=== PATIENT | female | born 1955 ===

== ENCOUNTER 2019-03-04 00:20 | Inpatient (IN) ==
[2019-03-04] MEDS ORDERED: MAGNESIUM HYDROXIDE SUSP 30 ML UDC PO PRN (00:27)
[2019-03-04] MEDS ORDERED: ALUMINUM/MAGNESIUM SUSP 30 ML UDC PO PRN (00:27)
[2019-03-04] MEDS ORDERED: SODIUM CHLORIDE 0.65% NA SOLN 45 ML (OCEAN) PRN (00:27)
[2019-03-04] MEDS ORDERED: BISMUTH SUBSALICYLATE PER ML OMNICELL CHARGE PO PRN (00:27)
[2019-03-04] MEDS ORDERED: INFLUENZA VIRUS QUAD VACCINE 0.5 ML SYR IM ONE (09:00)
[2019-03-04] MEDS ORDERED: INFLUENZA ADMINISTRATION CHARGE ONE (09:00)
[2019-03-04] MEDS: BuPROPion SR 100 MG TABCR PO SCH (11:38)
[2019-03-04] MEDS: LORazepam 1 MG TAB PO PRN (11:39)
[2019-03-04] MEDS: PANTOprazole 40 MG TAB PO SCH (11:39)
--- NOTE | 2019-03-04 11:44 | History & Physical ---
Date of Service March 04, 2019 Impression / Recommendations Impression 63 yo female with a history of schizoaffective disorder, bipolar type with prior suicide attempt 5 years ago presents with long history of paranoid delusions re: electronics, symptoms worsening to include SI in the context of presumed withdrawal from benzodiazepines. (1) Schizoaffective disorder: 03/04 The patient was admitted to the [facility] ([facility]) on q15 min checks (behavioral with suicide precautions) for safety. The patient will participate in group, recreational, and milieu therapies and will be offered additional individual and family sessions as clinically appropriate. she is resistant to titrating Abilify today and ideally need records re: past med trials. She did agree to resume Ativan as it does seem worsened significan tly during withdrawal and we are working to obtain collateral. She is paranoid and won't sign ROIs at this time. Given past positive response to Wellbutrin, it will not be held at this time but in general can contribute to paranoia due to dopaminergic property. no clear evidence of serotonin syndrome so continue Buspar QTc is borderline, repeat EKG fasting metabolic panel in am. Inventory Assets Strengths: supportive family, has been med compliant, maintains some reality focus Needs: medication adjustment, additional outpatient supports Risk Factors Assessment Male: No : Yes Do You Have Access To A Gun?: No Mental Health Diagnoses: Yes Substance Use Disorders: No Previous Attempt: Yes Family History of Suicide: No Previous Psychiatric Hospitalization: Yes Hopelessness: Yes Protective Factors Assessment Supportive Family: Yes Psychiatric History Identifying Data MELANIE MARTINEZ is a 63-year-old F who currently lives outside alone outside [place], has a history of schizoaffective disorder s/p suicide attempt 5 years ago, and was admitted on 03/04/19 02:12 on a 201 voluntary commitment for disorganized paranoia. Chief Complaint "I just lose my mind over computer stuff". History of Present Illness Patient accepted on transfer from [facility] ED where presented after calling crisis at insistence of daughter. She has had persistent paranoia about technology that predates her prior suicide attempt, primarily about things be moved or not being able to touch certain things as they may be booby trapped. 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 In the past few weeks she has worsened and although she had difficulty relating past history, states psych team at [facility] started her on low dose Abilify. She admits to breaking a laptop and cancelling her cable and internet. She states that she was taking Ativan 1 mg TID as prescribed but ran out a week ago. PDMP confirms 90 pills given by [facility] on 01/31/19. Over the course of the past week she has been less able to function and experiencing periods of confusion. She reports "losing it" over her car and doesn't remember going to the [employer] to [place] a new one. She does not remember taking out the loan and is remorseful as "I don't need it, I don't even want to drive". It is not clear how much she is sleeping but predominant mood has been depressed. She expressed SI and was guarded about her plan. She also voiced delusions about her 's phone ringing ( 2 years ago) and hearing chattering. She "couldn't stand it" when the [employer] light came on her in car and wished she could be shot. Past Psychiatric History Previous Psych History: she is not able to related and won't sign ROIs as paranoid about dates. has had paranoia outside of mood episode. Current Psychiatric Diagnosis: schizoaffective d/o, bipolar type Outpatient Services: [facility] only Previous Psych Admissions: [facility] in 2013, [facility], [place] 2019 Do You Have Access To A Gun?: No History of Previous Suicide Attempt: Yes Describe Attempts in the Past: overdose ~ 5 years ago Past Medication Trials: unable to provide full list, with regards to her allergies she states felt like she couldn't breathe with Geodon and hallucinated on Haldol, otherwise denies dystonia. has failed multiple antidepressants by her reports and will obtain ROIs when able. States Wellbutrin was only "god send" and on/off it over the years, it also helped her quit smoking 9 years ago Past Head Trauma/Neuro History History of Concussion/Seizure: No hx of hypercholesterolemia, states diet controlled EKG from [facility] show ST changes (confirmed on previous) and QTc in 485 Allergies Allergy/AdvReac Type Severity Reaction Status Date / Time ziprasidone [From Geodon] Allergy Unverified 03/04/19 00:29 haloperidol [From Haldol] AdvReac Unverified 03/04/19 00:29 rosuvastatin [From Crestor] AdvReac Unverified 03/04/19 00:29 Home Medications Home Medications Medication Instructions Recorded Confirmed Type aripiprazole [Abilify] 2 mg PO DAILY 03/04/19 03/04/19 History bupropion HCl [Wellbutrin SR] 200 mg PO DAILY 03/04/19 03/04/19 History buspirone 10 mg PO BID 03/04/19 03/04/19 History lorazepam [Ativan] 1 mg PO TID PRN 03/04/19 03/04/19 History omeprazole 20 mg PO DAILY 03/04/19 03/04/19 History Family History Family History of: Doesn't Know Alcohol History Hx of Alcohol Use Over the Past 12 Months: No AUDIT Total Score: 0 Smoking Use Have You Smoked or Used Tobacco Products in the Last 30 Days: No Smoking Status: Former smoker Substance History Hx of Prescription Med Misuse Over the Past 12 Months: No Hx of Over the Counter Med Misuse Over the Past 12 Months: No Hx of Inhalent Misuse Over the Past 12 Months: No Hx of Organic Substance Use Over the Past 12 Months: No Hx of Illegal Substances/Street Drug Use Over Past 12 Months: No Problems as a Result of Past Substance Use: None Identified Personal History Living Arrangements: Home Employment Status: Disabled Marital Status: Number Of Children: 2 daughters and 1 son Beliefs That Will Affect Care: None and Roman Catholic Current Legal Problems: No Hx Legal Problems: No Psychological Trauma History Comment: patient unable to answer Patient History Social History Preferred Language: Frisian Communication Ability: Effective Bilingual Customer Service Required: No Beliefs That Will Affect Care: None and Roman Catholic Feels Safe at Home: Yes Smoking Status: Former smoker Review of Systems Review of Systems: All systems reviewed & are unremarkable except as noted in HPI & below Physical Exam Mental Examination: A physical exam was performed in the ED at [facility] for the purposes of medical clearance. I accept that physical as correct and adequate for the purposes of the inpatient physical exam. Psychiatric: Orientation: alert, oriented to person and oriented to place Apperance: + disheveled Eye Contact: + fair eye contact Motor Behavior: no abnormal motor movements Speech: normal rate/rhythm/volume of speech Affect: + depressed affect and + anxious affect Mood: + depressed mood and + anxious mood Thought Process: + circumstantial thought process Thought Content: + paranoid and + delusions Suicidal Thoughts: denies suicidal plan and denies suicidal intent; + reports suicidal thoughts suicidal thoughts as severely overwhelmed Homicidal Thoughts: denies homicidal thoughts Hallucinations: + auditory hallucinations; no visual hallucinations Cognition: language grossly intact; + recent memory not intact, + remote memory not intact and + attention not intact Estimated Intelligence: consistent with education level Insight: + impaired insight Judgement: + impaired judgement Vital Signs (Past 24 Hours): Last Vital Signs Temp 36.8 C 03/04/19 06:49 Pulse 102 H 03/04/19 06:49 Resp 19 03/04/19 06:49 BP 147/80 H 03/04/19 06:49 Results & Data Current Inpatient Medications Current Inpatient Medications: Current Inpatient Medications Acetaminophen (Tylenol) 650 mg PO Q4H PRN PRN Reason: Headache or Minor Fever Stop: 04/03/19 00:26 Al Hydrox/Mg Hydrox/Simethicone (Maalox) 30 ml PO Q4H PRN PRN Reason: GI Upset Stop: 04/03/19 00:26 Aripiprazole (Abilify) 2 mg PO DAILY CASSIDY Stop: 04/04/19 08:59 Bismuth Subsalicylate (Kaopectate) 15 ml PO PRN PRN PRN Reason: Loose Stool Stop: 04/03/19 00:26 Bupropion HCl (Wellbutrin-Sr) 200 mg PO DAILY CASSIDY Stop: 04/03/19 09:59 Buspirone HCl (Buspar) 10 mg PO BID CASSIDY Stop: 04/03/19 20:59 Hydroxyzine HCl (Vistaril) 50 mg PO HSZ PRN PRN Reason: Insomnia Stop: 04/03/19 00:26 Last Admin: 03/04/19 02:56 Dose: 50 mg Documented by: Hydroxyzine HCl (Vistaril) 25 mg PO Q4H PRN PRN Reason: Anxiety Stop: 04/03/19 00:26 Lorazepam (Ativan) 1 mg PO TID PRN PRN Reason: Anxiety Stop: 04/03/19 09:46 Magnesium Hydroxide (Milk Of Magnesia) 30 ml PO DAILY PRN PRN Reason: Constipation Stop: 04/03/19 00:26 Pantoprazole Sodium (Protonix) 40 mg PO DAILY CASSIDY Stop: 04/03/19 10:29 Sodium Chloride ([place] Nasal) 1 - 2 sprays NA PRN PRN PRN Reason: Nasal Dryness/Congestion Stop: 04/03/19 00:26 CPT Code CPT Code Initial Hospital Care: 30594
[2019-03-04] MEDS ORDERED: BENZTROPINE MESYLATE 0.5 MG TAB PO PRN (12:22)
[2019-03-04] MEDS: ACETAMINOPHEN 325 MG TAB PO PRN (17:50)
[2019-03-05] MEDS: LORazepam 1 MG TAB PO PRN ×2 (08:16→17:58)
[2019-03-05] MEDS: PANTOprazole 40 MG TAB PO SCH (08:16)
[2019-03-05] MEDS: BuPROPion SR 100 MG TABCR PO SCH (08:16)
[2019-03-05 08:54] LABS: Glucose Fasting 91 mg/dl (70-99)
[2019-03-05 09:00] LABS: Chol HDL Ratio 3; Cholesterol 167 mg/dl (0-200); HDL Cholesterol 54 mg/dl; LDL Cholesterol Calculated 91 mg/dl; Triglycerides 112 mg/dl (0-150); VLDL Cholesterol 22 mg/dl
[2019-03-05] MEDS ORDERED: ARIPIprazole 1 MG/ML ORAL SOLN 150 ML BTL PO SCH (09:00)
--- NOTE | 2019-03-05 11:06 | Psychiatric Progress Note ---
Date of Service March 05, 2019 Impression / Recommendations Impression 63 yo female with a history of schizoaffective disorder, bipolar type with prior suicide attempt 5 years ago presents with long history of paranoid delusions re: electronics, symptoms worsening to include SI in the context of presumed withdrawal from benzodiazepines. (1) Schizoaffective disorder: 03/04 The patient was admitted to the [facility] ([facility]) on q15 min checks (behavioral with suicide precautions) for safety. The patient will participate in group, recreational, and milieu therapies and will be offered additional individual and family sessions as clinically appropriate. she is resistant to titrating Abilify today and ideally need records re: past med trials. She did agree to resume Ativan as it does seem worsened significan tly during withdrawal and we are working to obtain collateral. She is paranoid and won't sign ROIs at this time. Given past positive response to Wellbutrin, it will not be held at this time but in general can contribute to paranoia due to dopaminergic property. no clear evidence of serotonin syndrome so continue Buspar QTc is borderline, repeat EKG fasting metabolic panel in am. 03/05--refused repeat EKG this am. d/c Abilify as ?contribution to mild serotonin syndrome, refusing titration yet need to determine appropriate options given past side effects. Much more organized today with restart Ativan. Inventory Assets Strengths: supportive family, has been med compliant, maintains some reality focus Needs: medication adjustment, additional outpatient supports Risk Factors Assessment Male: No : Yes Do You Have Access To A Gun?: No Mental Health Diagnoses: Yes Substance Use Disorders: No Previous Attempt: Yes Family History of Suicide: No Previous Psychiatric Hospitalization: Yes Hopelessness: Yes Protective Factors Assessment Supportive Family: Yes Interval History Chief Complaint "I just can't trust why all this stuff happens the way it does, it can't be a coincidence". Review of Systems Sleep Information Total Hours of Sleep: 8.75 Meal Information Percent Meal Consumed - Breakfast: 0 Percent Meal Consumed - Lunch: 100 Percent Meal Consumed - Dinner: 100 Subjective Subjective Patient was seen & assessed and interval progress reviewed with nursing and social work. Paranoid about her medication as Abilify was liquid rather than pills and is now stating that most of her symptoms have been worse over the 3 week trial and she no longer wants to continue. She has shown positive response to Ativan restart and signed ROIs so can continue to obtain collaborative history. She breaks down any time the car is mentioned. She secluded to room much of day but starting to attend some groups. Staff now report that daughter believes she found a suicide note. Physical Exam Psychiatric Orientation: alert, oriented to person and oriented to place Apperance: + disheveled Eye Contact: + fair eye contact Motor Behavior: no abnormal motor movements Speech: normal rate/rhythm/volume of speech Affect: + depressed affect and + anxious affect Mood: + depressed mood and + anxious mood Thought Process: + circumstantial thought process Thought Content: + paranoid and + delusions Suicidal Thoughts: denies suicidal plan and denies suicidal intent Homicidal Thoughts: denies homicidal thoughts Hallucinations: + auditory hallucinations; no visual hallucinations Cognition: language grossly intact; + recent memory not intact, + remote memory not intact and + attention not intact Estimated Intelligence: consistent with education level Insight: + impaired insight Judgement: + impaired judgement Vital Signs (Past 24 Hours) Last Vital Signs Temp 36.6 C 03/05/19 06:00 Pulse 71 03/05/19 06:45 Resp 16 03/05/19 06:00 BP 133/87 03/05/19 06:45 Results & Data Laboratory Results Laboratory Results - last 24 hr 03/05/19 08:06 Fasting Glucose 91 Triglycerides 112 Cholesterol 167 LDL Cholesterol, Calc 91 VLDL Cholesterol, Calc 22 HDL Cholesterol 54 Cholesterol/HDL Ratio 3 Current Inpatient Medications Current Inpatient Medications: Current Inpatient Medications Acetaminophen (Tylenol) 650 mg PO Q4H PRN PRN Reason: Headache or Minor Fever Stop: 04/03/19 00:26 Last Admin: 03/04/19 17:50 Dose: 650 mg Documented by: Al Hydrox/Mg Hydrox/Simethicone (Maalox) 30 ml PO Q4H PRN PRN Reason: GI Upset Stop: 04/03/19 00:26 Aripiprazole (Abilify) 2 mg PO DAILY CASSIDY Stop: 04/04/19 08:59 Last Admin: 03/05/19 08:29 Dose: Not Given Documented by: Benztropine Mesylate (Cogentin) 0.5 mg PO Q6 PRN PRN Reason: Muscle Spasm Stop: 04/03/19 12:21 Bismuth Subsalicylate (Kaopectate) 15 ml PO PRN PRN PRN Reason: Loose Stool Stop: 04/03/19 00:26 Bupropion HCl (Wellbutrin-Sr) 200 mg PO DAILY CASSIDY Stop: 04/03/19 09:59 Last Admin: 03/05/19 08:16 Dose: 200 mg Documented by: Buspirone HCl (Buspar) 10 mg PO BID CASSIDY Stop: 04/03/19 20:59 Last Admin: 03/05/19 08:16 Dose: 10 mg Documented by: Hydroxyzine HCl (Vistaril) 50 mg PO HSZ PRN PRN Reason: Insomnia Stop: 04/03/19 00:26 Last Admin: 03/04/19 21:18 Dose: 50 mg Documented by: Hydroxyzine HCl (Vistaril) 25 mg PO Q4H PRN PRN Reason: Anxiety Stop: 04/03/19 00:26 Lorazepam (Ativan) 1 mg PO TID PRN PRN Reason: Anxiety Stop: 04/03/19 09:46 Last Admin: 03/05/19 08:16 Dose: 1 mg Documented by: Magnesium Hydroxide (Milk Of Magnesia) 30 ml PO DAILY PRN PRN Reason: Constipation Stop: 04/03/19 00:26 Pantoprazole Sodium (Protonix) 40 mg PO DAILY CASSIDY Stop: 04/03/19 10:29 Last Admin: 03/05/19 08:16 Dose: 40 mg Documented by: Sodium Chloride ([place] Nasal) 1 - 2 sprays NA PRN PRN PRN Reason: Nasal Dryness/Congestion Stop: 04/03/19 00:26 Mental Health & Subst Abuse Tx Psychiatrist Name of Psychiatrist: [facility] - Dr. Rodríguez Psychiatrist's Date of Appointment with Psychiatrist: 03/07/19 Time of Appointment with Psychiatrist: 2:00pm Psychiatric Appointment Comment: [address] [place] [id number] (Appt. w/[place] Powell) Therapist Name of Therapist: does not remember Post Discharge Appointments Primary Care Physician Name Of Family Doctor: [facility] - Dr. Multani Primary Care Provider Appointment Comment: [address] [place] [address] Contact Information Discharge Discharge Address: [address], [place] [address] CPT Code CPT Code 27736
[2019-03-06] MEDS: PANTOprazole 40 MG TAB PO SCH (09:53)
[2019-03-06] MEDS: BuPROPion SR 100 MG TABCR PO SCH (09:53)
--- NOTE | 2019-03-06 10:44 | Psychiatric Progress Note ---
Date of Service March 06, 2019 Impression / Recommendations Impression 63 yo female with a history of schizoaffective disorder, bipolar type with prior suicide attempt 5 years ago presents with long history of paranoid delusions re: electronics, symptoms worsening to include SI in the context of presumed withdrawal from benzodiazepines. (1) Schizoaffective disorder: 03/04 The patient was admitted to the [facility] ([facility]) on q15 min checks (behavioral with suicide precautions) for safety. The patient will participate in group, recreational, and milieu therapies and will be offered additional individual and family sessions as clinically appropriate. she is resistant to titrating Abilify today and ideally need records re: past med trials. She did agree to resume Ativan as it does seem worsened significan tly during withdrawal and we are working to obtain collateral. She is paranoid and won't sign ROIs at this time. Given past positive response to Wellbutrin, it will not be held at this time but in general can contribute to paranoia due to dopaminergic property. no clear evidence of serotonin syndrome so continue Buspar QTc is borderline, repeat EKG fasting metabolic panel in am. 03/05--refused repeat EKG this am. d/c Abilify as ?contribution to mild serotonin syndrome, refusing titration yet need to determine appropriate options given past side effects. Much more organized today with restart Ativan. 03/06 - Records received from [facility], no past med trials included. Called and spoke with staff and requested med history, specifically antipsychotics. - Encourage patient to be out of bed and going to groups during the day. Encourage attention to ADLs/hygiene. - Family meeting wiht daughter scheduled for . Inventory Assets Strengths: supportive family, has been med compliant, maintains some reality focus Needs: medication adjustment, additional outpatient supports Risk Factors Assessment Male: No : Yes Do You Have Access To A Gun?: No Mental Health Diagnoses: Yes Substance Use Disorders: No Previous Attempt: Yes Family History of Suicide: No Previous Psychiatric Hospitalization: Yes Hopelessness: Yes Protective Factors Assessment Supportive Family: Yes Interval History Identifying Information MELANIE MARTINEZ is a 63-year-old F who currently lives alone outside [place], has a history of schizoaffective disorder s/p suicide attempt 5 years ago, and was admitted on 03/04/19 02:12 on a 201 voluntary commitment for psychosis and suicidal ideation, after writing a suicide note. Chief Complaint "I don't know where to start". Review of Systems Sleep Information Total Hours of Sleep: 6 Sleep Comments: pt given vistaril x2 per rn. pt appeared restless, waking on and off during the night. pt on q-15 minute checks Meal Information Percent Meal Consumed - Breakfast: 25 Percent Meal Consumed - Lunch: 50 Percent Meal Consumed - Dinner: 75 Nutrition Comment: documented from meal record worksheet Subjective Subjective Patient was seen & assessed and interval progress reviewed with treatment team. Staff reports she has been isolating in her room, refusing groups and refusing to sign any paperwork. She reports feeling unsafe at home, but then states she wants to go home. She continues to report that her phone is bugged and that she is being watched. She will not come out of her room even for meals and appears suspicious. On my assessment, she was seen in her room, where she remained in bed midday. She states she is spending her time "thinking," and is vague when asked for further information, stating "just wherever my mind goes." She has difficulty describing the events that led to hospitalization. She states that she "just wants to go home," but admits that she was feeling unsafe at home, and cannot explain what has changed. She says she "just needs to learn to deal with it" with respect to her reported stressors on admission, but cannot describe how she might cope if she were at home now. She says she has gone to some groups, but cannot recall which ones. She reports poor sleep overnight, and felt "time was moving very slow." Mood is "sorta blah," but she feels less hopeless than she did on presentation. She says she wants to "start thinking a bit differently, find some self soothing activities." Records from [facility] reviewed: Patient last seen 02/07/2019 for a follow-up appointment. She was on bupropion, Lorazepam, and buspirone, and reported compliance with medications. Her daughter was with her, and they reported she had not been doing well, was more paranoid and delusional. She had gotten out a laptop and tried to use it to download crocheting patterns, but became paranoid and fearful. They noted a long-standing paranoia and delusional thoughts around technology. She called for technical support, but then became convinced that the person on the phone had hacked into her computer. She then started thinking that her TV and cell phone were being controlled by other people. She ended up smashing the computer, and disconnected all electronic devices, stating she would not use a phone or TV. She was unable to reality test, and was upset and overwhelmed. An antipsychotic was recommended, and she agreed to a trial of aripiprazole 2 mg daily. Her initial evaluation is dated 09/27/2017: Previously seen by Dr. Santos, and was being transferred to Dr. Carlos Rodríguez. She was on ziprasidone 80 mg twice daily, lamotrigine 200 mg daily, and lorazepam 1 mg twice daily as needed. She reported she was coping well with the recent of her , and was considering moving in with her daughter. She reported fearfulness of other people which led to isolating in her house. She denied mood and psychotic symptoms but reported chronic poor sleep. Her medications were continued. Physical Exam Psychiatric Overweight female, lying in bed awake, in no acute distress. Disheveled and unkempt. Partially cooperative with the assessment. Limited eye contact, and no abnormal movements. Speech is minimal, halting. Mood is "okay," and affect is blunted, mildly anxious. Thoughts are slightly disorganized, vague, notable for delusions of persecution and paranoia. No hallucinations, homicidal thoughts, or suicidal thoughts. Insight and judgment are impaired. Vital Signs (Past 24 Hours) Last Vital Signs Temp 36.4 C L 03/06/19 06:43 Pulse 73 03/06/19 06:44 Resp 18 03/06/19 06:43 BP 134/84 03/06/19 06:44 Results & Data Current Inpatient Medications Current Inpatient Medications: Current Inpatient Medications Acetaminophen (Tylenol) 650 mg PO Q4H PRN PRN Reason: Headache or Minor Fever Stop: 04/03/19 00:26 Last Admin: 03/04/19 17:50 Dose: 650 mg Documented by: Al Hydrox/Mg Hydrox/Simethicone (Maalox) 30 ml PO Q4H PRN PRN Reason: GI Upset Stop: 04/03/19 00:26 Benztropine Mesylate (Cogentin) 0.5 mg PO Q6 PRN PRN Reason: Muscle Spasm Stop: 04/03/19 12:21 Bismuth Subsalicylate (Kaopectate) 15 ml PO PRN PRN PRN Reason: Loose Stool Stop: 04/03/19 00:26 Bupropion HCl (Wellbutrin-Sr) 200 mg PO DAILY C[facility]IDY Stop: 04/03/19 09:59 Last Admin: 03/06/19 09:53 Dose: 200 mg Documented by: Buspirone HCl (Buspar) 10 mg PO BID CASSIDY Stop: 04/03/19 20:59 Last Admin: 03/06/19 09:53 Dose: 10 mg Documented by: Hydroxyzine HCl (Vistaril) 50 mg PO HSZ PRN PRN Reason: Insomnia Stop: 04/03/19 00:26 Last Admin: 03/06/19 02:33 Dose: 50 mg Documented by: Hydroxyzine HCl (Vistaril) 25 mg PO Q4H PRN PRN Reason: Anxiety Stop: 04/03/19 00:26 Lorazepam (Ativan) 1 mg PO TID PRN PRN Reason: Anxiety Stop: 04/03/19 09:46 Last Admin: 03/05/19 17:58 Dose: 1 mg Documented by: Magnesium Hydroxide (Milk Of Magnesia) 30 ml PO DAILY PRN PRN Reason: Constipation Stop: 04/03/19 00:26 Pantoprazole Sodium (Protonix) 40 mg PO DAILY C[facility]Y Stop: 04/03/19 10:29 Last Admin: 03/06/19 09:53 Dose: 40 mg Documented by: Sodium Chloride ([place] Nasal) 1 - 2 sprays NA PRN PRN PRN Reason: Nasal Dryness/Congestion Stop: 04/03/19 00:26 Mental Health & Subst Abuse Tx Psychiatrist Name of Psychiatrist: [facility] - Dr. Rodríguez Psychiatrist's Date of Appointment with Psychiatrist: 03/07/19 Time of Appointment with Psychiatrist: 2:00pm Psychiatric Appointment Comment: [address], [place] [phone] (Appt. w/STELLA Powell) Therapist Name of Therapist: does not remember Post Discharge Appointments Primary Care Physician Name Of Family Doctor: [facility] - Dr. Multani Primary Care Provider Appointment Comment: [address], [place] [phone] Contact Information Discharge Discharge Address: [address], [place] [address] CPT Code CPT Code 90773
[2019-03-06] MEDS: LORazepam 1 MG TAB PO PRN (18:20)
[2019-03-06] MEDS: ACETAMINOPHEN 325 MG TAB PO PRN (20:10)
[2019-03-07] MEDS: PANTOprazole 40 MG TAB PO SCH (08:37)
[2019-03-07] MEDS: BuPROPion SR 100 MG TABCR PO SCH (08:38)
[2019-03-07] MEDS: LORazepam 1 MG TAB PO PRN (08:38)
--- NOTE | 2019-03-07 11:11 | Psychiatric Progress Note ---
Date of Service March 07, 2019 Impression / Recommendations Impression 63 yo female with a history of schizoaffective disorder, bipolar type with prior suicide attempt 5 years ago presents with long history of paranoid delusions re: electronics, symptoms worsening to include SI in the context of presumed withdrawal from benzodiazepines. Pt agreeable to retrial of an antipsychotic medication to target long history of delusional beliefs. After explanation of risks, benefits, and potential side effects - patient is willing to trial risperidone 0.5mg BID with titration as necessary/tolerated. AIMS - 0. Fasting labs obtained on 03/05 were reviewed; all WNLs. Pt is scheduled for a family meeting with her daughter on 03/09. She remains in need of inpatient psychiatric treatment due to her continued paranoia, delusions, and risk of harm to self due to the level of distress worsening SI. (1) Schizoaffective disorder: 03/04 The patient was admitted to the [facility] ([facility] unit) on q15 min checks (behavioral with suicide precautions) for safety. The patient will participate in group, recreational, and milieu therapies and will be offered additional individual and family sessions as clinically appropriate. she is resistant to titrating Abilify today and ideally need records re: past med trials. She did agree to resume Ativan as it does seem worsened significantly during withdrawal and we are working to obtain collateral. She is paranoid and won't sign ROIs at this time. Given past positive response to Wellbutrin, it will not be held at this time but in general can contribute to paranoia due to dopaminergic property. no clear evidence of serotonin syndrome so continue Buspar QTc is borderline, repeat EKG fasting metabolic panel in am. 03/05--refused repeat EKG this am. d/c Abilify as ?contribution to mild serotonin syndrome, refusing titration yet need to determine appropriate options given past side effects. Much more organized today with restart Ativan. 03/06 - Records received from [facility], no past med trials included. Called and spoke with staff and requested med history, specifically antipsychotics. - Encourage patient to be out of bed and going to groups during the day. Encourage attention to ADLs/hygiene. - Family meeting wiht daughter scheduled for . 03/07 - Initiate risperidone 0.5mg BID, with titration as necessary/tolerated - Continue bupropion and buspirone at home doses - Family meeting with daughter - Pt has been attending more groups today, continue to encourage attendance Inventory Assets Strengths: supportive family, has been med compliant, maintains some reality focus Needs: medication adjustment, additional outpatient supports Risk Factors Assessment Male: No : Yes Do You Have Access To A Gun?: No Mental Health Diagnoses: Yes Substance Use Disorders: No Previous Attempt: Yes Family History of Suicide: No Previous Psychiatric Hospitalization: Yes Hopelessness: Yes Protective Factors Assessment Supportive Family: Yes Interval History Identifying Information MELANIE MARTINEZ is a 63-year-old F who currently lives alone outside [place], has a history of schizoaffective disorder s/p suicide attempt 5 years ago, and was admitted on 03/04/19 02:12 on a 201 voluntary commitment for psychosis and suicidal ideation, after writing a suicide note. Chief Complaint "Better today. Yesterday was just a really bad day." Review of Systems Notes Constitutional: denied Cardiovascular: denied Respiratory: denied Gastrointestinal: denied Neurological: denied Psychiatric: denies symptoms other than stated above Total of at least 10 systems reviewed, pertinent positives as above and in HPI. Sleep Information Total Hours of Sleep: 6.25 Sleep Comments: pt appeared to be awake @0400 for about one hr and appeared to be asleep afterwards. pt on q-15 minute checks Meal Information Percent Meal Consumed - Breakfast: 10 Percent Meal Consumed - Lunch: 50 Percent Meal Consumed - Dinner: 0 Nutrition Comment: documented from meal record worksheet Subjective Subjective Patient was seen & assessed and interval progress reviewed with nursing and social work. Staff reports the patient was largely isolative over the weekend, and has not been attending many groups. Pt is scheduled to have a meeting with her daughter on 03/09/19. Pt was seen today to assess progress since admission. Pt states that yesterday was "a really bad day for me." Pt states that she felt as though she was "stuck in my head a lot." A positive, is that the patient states "a slept last night, like actually slept!" Pt was willing to review prior medication history with this provider, now that records have been received. She states that she has experienced initial side effects to Abilify, that improve within a month - but reports her biggest concern at this time is the high cost of the medication. "I'm not going to be able to keep taking the Abilify, so why start it again?" Pt states that she does not recall any details about her previous trial of risperidone, and is agreeable to restarting a low dose of this medication. Pt was reassured that this medication is on the $4 generic list at her pharmacy, which she was appreciative of. Risks, benefits, and potential side effects were reviewed. Pt verbalized understanding and is agreeable with initiating the medication at 0.5mg BID to start. Pt shares that her paranoia regarding technology remains present, but "I'm ok if I'm not the one using it." She shares her history with this provider, and recounts that her paranoia worsened with trying to set up a new laptop computer. She states, "technology is just a no-no for me." Pt continues to verbalize that the only explanation for these events is that she was "hacked", and "whoever was messing with my computer started messing with my TV. I just feel like a target." Pt denies overt SI, but does admit to feeling overwhelmed and helpless. She states she would not feel safe outside of the hospital at this time. She denies acute needs or concerns at this time. Summary of Past History Per Outpatient Psychiatric Records: Follow-up Visit Summaries from [facility] Diagnoses: Schizoaffective disorder, bipolar type; Grief 02/07/19 - Urgent visit requested; daughter reporting decompensation with worsening paranoia and delusional thoughts. Longstanding paranoia toward technology was exacerbated by attempting to connect a laptop computer she had purchased 2.5 years prior. Difficulties setting up the computer led to increased concern that her computer was hacked. During psychiatric visit, patient was reportedly unable to participate in challenging her delusions. Pt was agreeable to retrial of Abilify, which was initiated at 2mg daily. Pt had denied SI/HI during visit. Pt was continued on buspirone 10mg BID, bupropion SR 200mg daily, and lorazaepam 1mg TID prn. 01/03/19 - Pt seen by her psychiatrist, reportedly doing better. Admitted to decreased crying spells after dose of bupropion had been increased. Concentration had reportedly improved, along with sleep. Medical concerns had reportedly be contributing to stress, but "is not having visual hallucinations" of her . Pt again denied SI?HI. It was reported that the patient was doing well on "simply antidepressant medications", reporting that patient "feels better than she did when she was taking something as a mood stabilizer." 09/27/17 - Pt was seen for transfer to Dr. Rodríguez from Dr. Santos. Pt had been continued on Geodon 80mg BID, Ativan 1mg BID prn, and Lamictal 200mg daily. Pt reportedly doing well living independently, but still struggling with the of her . Significant paranoia symptoms were denied. Denied SI?HI, but reported issues with falling and staying asleep. Based on records, recent (2013 - ) antipsychotic trials are assumed to follow the general outline listed below: - Geodon: max 80mg BID; 07/2013 - 09/2013 - Risperdal: 1mg/2mg; 09/2013 - 10/2013 - Abilify: max 20mg; 10/2013 - 01/2014 - Geodon: max 80mg BID; 01/2014 - likely 03/2014 - Haldol: max 2mg BID; 03/2014 - 01/2015 - Haldol: 0.5mg BID; 07/2018 - 08/2018 - Abilify: 2mg; 01/2019 Medication Trials Per Outpatient Psychiatric Records: 1. Wellbutrin - beneficial for depressive symptoms 2. Lamictal (max 200mg) 3. Ativan 4. Geodon (max 80mg BID) - reported "dizziness, headache, blurry vision, and a clicking noise in my throat that went away when I stopped it." 5. Invega Sustenna - 03/30/11; PO Invega 6mg 6. Haldol PO (2mg BID) and Decanoate (50mg) 7. Latuda - 05/19/11 8. Ambien - 10mg 9. Zoloft - 100mg 10.Topamax - 100mg 11.Lexapro - 20mg 12.Risperdal - 1mg/2mg (~09/2013) 13.Abilify - 20mg (~11/2013 and 01/2019) - concern for cost of medication Physical Exam Psychiatric Orientation: alert, oriented x 3 and cooperative Apperance: appropriately dressed, appropriately groomed and appeared stated age Eye Contact: good eye contact Motor Behavior: steady gait and station and no abnormal motor movements Speech: normal rate/rhythm/volume of speech Affect: + depressed affect, + anxious affect and mood congruent with affect Mood: + depressed mood ("a little better today") and + anxious mood Thought Process: goal directed thought process Thought Content: + paranoid (only expressed when discussing technology), + delusions (continues to verbalize belief that she is being "targeted" and "hacked") and + hopelessness (/helplessness - improving mildly today) Suicidal Thoughts: denies suicidal thoughts (but admits to ongoing helplessness/hopelessness) and denies suicidal intent Hallucinations: no auditory hallucinations and no visual hallucinations Cognition: attention grossly intact and language grossly intact Insight: + impaired insight Judgement: + fair judgement Vital Signs (Past 24 Hours) Last Vital Signs Temp 36.7 C 03/07/19 06:58 Pulse 73 03/07/19 06:58 Resp 18 03/07/19 06:58 BP 132/82 03/07/19 06:58 Results & Data Current Inpatient Medications Current Inpatient Medications: Current Inpatient Medications Acetaminophen (Tylenol) 650 mg PO Q4H PRN PRN Reason: Headache or Minor Fever Stop: 04/03/19 00:26 Last Admin: 03/06/19 20:10 Dose: 650 mg Documented by: Al Hydrox/Mg Hydrox/Simethicone (Maalox) 30 ml PO Q4H PRN PRN Reason: GI Upset Stop: 04/03/19 00:26 Benztropine Mesylate (Cogentin) 0.5 mg PO Q6 PRN PRN Reason: Muscle Spasm Stop: 04/03/19 12:21 Bismuth Subsalicylate (Kaopectate) 15 ml PO PRN PRN PRN Reason: Loose Stool Stop: 04/03/19 00:26 Bupropion HCl (Wellbutrin-Sr) 200 mg PO DAILY [facility] Stop: 04/03/19 09:59 Last Admin: 03/07/19 08:38 Dose: 200 mg Documented by: Buspirone HCl (Buspar) 10 mg PO BID CASSIDY Stop: 04/03/19 20:59 Last Admin: 03/07/19 08:37 Dose: 10 mg Documented by: Hydroxyzine HCl (Vistaril) 50 mg PO HSZ PRN PRN Reason: Insomnia Stop: 04/03/19 00:26 Last Admin: 03/06/19 02:33 Dose: 50 mg Documented by: Hydroxyzine HCl (Vistaril) 25 mg PO Q4H PRN PRN Reason: Anxiety Stop: 04/03/19 00:26 Lorazepam (Ativan) 1 mg PO TID PRN PRN Reason: Anxiety Stop: 04/03/19 09:46 Last Admin: 03/07/19 08:38 Dose: 1 mg Documented by: Magnesium Hydroxide (Milk Of Magnesia) 30 ml PO DAILY PRN PRN Reason: Constipation Stop: 04/03/19 00:26 Pantoprazole Sodium (Protonix) 40 mg PO DAILY CASSIDY Stop: 04/03/19 10:29 Last Admin: 03/07/19 08:37 Dose: 40 mg Documented by: Sodium Chloride ([place] Nasal) 1 - 2 sprays NA PRN PRN PRN Reason: Nasal Dryness/Congestion Stop: 04/03/19 00:26 Mental Health & Subst Abuse Tx Psychiatrist Name of Psychiatrist: [facility] - Dr. Rodríguez Psychiatrist's Date of Appointment with Psychiatrist: 03/07/19 Time of Appointment with Psychiatrist: 2:00pm Psychiatric Appointment Comment: [address], [place] [phone] (Appt. w/[place]) Therapist Name of Therapist: does not remember Post Discharge Appointments Primary Care Physician Name Of Family Doctor: [facility] - Dr. Multani Primary Care Provider Appointment Comment: [address], [place] [phone] Contact Information Discharge Discharge Address: [address], [place] [address] CPT Code CPT Code 16094
[2019-03-07] MEDS: risperiDONE 0.5 MG TABLET PO SCH ×2 (12:26→21:05)
[2019-03-08] MEDS: BuPROPion SR 100 MG TABCR PO SCH (08:40)
[2019-03-08] MEDS: PANTOprazole 40 MG TAB PO SCH (08:40)
[2019-03-08] MEDS: risperiDONE 0.5 MG TABLET PO SCH ×2 (08:40→21:09)
[2019-03-08] MEDS: LORazepam 1 MG TAB PO PRN (09:36)
--- NOTE | 2019-03-08 11:37 | Psychiatric Progress Note ---
Date of Service March 08, 2019 Impression / Recommendations Impression 63 yo female with a history of schizoaffective disorder, bipolar type with prior suicide attempt 5 years ago presents with long history of paranoid delusions re: electronics, symptoms worsening to include SI in the context of presumed withdrawal from benzodiazepines. Pt agreeable to retrial of an antipsychotic medication to target long history of delusional beliefs. After explanation of risks, benefits, and potential side effects - patient is willing to trial risperidone with titration as necessary/tolerated. AIMS - 0. Fasting labs obtained on 03/05 were reviewed; all WNLs. Pt is scheduled for a family meeting with her daughter on 03/09. She remains in need of inpatient psychiatric treatment due to her continued paranoia, delusions, and risk of harm to self due to the level of distress worsening SI. (1) Schizoaffective disorder: 03/04 The patient was admitted to the [facility] ([facility] mental health unit) on q15 min checks (behavioral with suicide precautions) for safety. The patient will participate in group, recreational, and milieu therapies and will be offered additional individual and family sessions as clinically appropriate. she is resistant to titrating Abilify today and ideally need records re: past med trials. She did agree to resume Ativan as it does seem worsened significantly during withdrawal and we are working to obtain collateral. She is paranoid and won't sign ROIs at this time. Given past positive response to Wellbutrin, it will not be held at this time but in general can contribute to paranoia due to dopaminergic property. no clear evidence of serotonin syndrome so continue Buspar QTc is borderline, repeat EKG fasting metabolic panel in am. 03/05--refused repeat EKG this am. d/c Abilify as ?contribution to mild serotonin syndrome, refusing titration yet need to determine appropriate options given past side effects. Much more organized today with restart Ativan. 03/06 - Records received from [facility], no past med trials included. Called and spoke with staff and requested med history, specifically antipsychotics. - Encourage patient to be out of bed and going to groups during the day. Encou rage attention to ADLs/hygiene. - Family meeting wiht daughter scheduled for . 03/07 - Initiate risperidone 0.5mg BID, with titration as necessary/tolerated - Continue bupropion and buspirone at home doses - Family meeting with daughter - Pt has been attending more groups today, continue to encourage attendance 03/08 - Titrate risperidone to 1mg BID, starting this evening - Continue remainder of psychotropic medications - Family meeting with daughter tomorrow - Continue to encourage group attendance Inventory Assets Strengths: supportive family, has been med compliant, maintains some reality focus Needs: medication adjustment, additional outpatient supports Risk Factors Assessment Male: No : Yes Do You Have Access To A Gun?: No Mental Health Diagnoses: Yes Substance Use Disorders: No Previous Attempt: Yes Family History of Suicide: No Previous Psychiatric Hospitalization: Yes Hopelessness: Yes Protective Factors Assessment Supportive Family: Yes Interval History Identifying Information MELANIE MARTINEZ is a 63-year-old F who currently lives alone outside [place], has a history of schizoaffective disorder s/p suicide attempt 5 years ago, and was admitted on 03/04/19 02:12 on a 201 voluntary commitment for psychosis and suicidal ideation, after writing a suicide note. Chief Complaint "Today started out a little shaky, but I'm settling now." Review of Systems Notes Constitutional: reports significantly improved sleep last evening Cardiovascular: denied Respiratory: denied Gastrointestinal: denied Neurological: denied Psychiatric: denies symptoms other than stated above Total of at least 10 systems reviewed, pertinent positives as above and in HPI. Sleep Information Total Hours of Sleep: 8.5 Sleep Comments: pt appeared to be awake @0400 for about one hr and appeared to be asleep afterwards. pt on q-15 minute checks Meal Information Percent Meal Consumed - Breakfast: 30 Percent Meal Consumed - Lunch: 90 Percent Meal Consumed - Dinner: 100 Nutrition Comment: documented from meal record worksheet Medication Trials Subjective Subjective Patient was seen & assessed and interval progress reviewed with treatment team. Staff reports the patient was interactive yesterday, out of her room, and attending groups. This morning has been more difficult, as she has expressed anxiety and uncertainties to multiple staff regarding her treatment. Pt had reported to one staff member - "I don't know what's real and what's not" and "nothing is making sense." Pt was seen today to assess progress since admission, and follow-up on these topics. Pt states that she was "a little shaky" to start the day, but feels her mood has improved over the course of the morning. Pt states, "I started to feel more at ease since I went to groups." Pt admits that she felt comforted by being in the presence of other individuals who are struggling with their mental health as well. Pt does request to ask this provider several questions, as she timidly admits to ongoing uncertainty. Pt states, "I always get uptight when I have to sign papers. I didn't sign my treatment plan this morning. I feel bad." We reviewed patient's concerns regarding her treatment plan - which thoughts distorted by the patient's current anxiety/paranoia. In short, patient had convinced herself that she was only being treated for a "medical concern of chronic back pain" and that "there were no mental health problems listed, so I won't be able to get medications or services after I leave." Pt also expressed concern regarding inpatient interventions (i.e 15min checks, daily vitals), as she believed these interventions would continue on an outpatient basis. Pt was accepting of this provider's clarification of the treatment plan, as a record of pertinent topics of treatment and an explanation of anticipated interventions and outline of patient progress. Pt was agreeable to reviewing her treatment plan in more detail with staff, in order to allow her to feel less anxious about the purpose of this paperwork. Pt states she also now believes that she does not have insurance, "but the counselor told me I did, so now I don't know who to believe. I won't be able to get therapy or see my doctors anymore." This provider explained that insurance information was passed along from her [facility] ED presentation, and was verified on admission. And that her current psychiatrist's office would have this record from seeing her prior to this hospitalization. Pt verbalized understanding of this rationalization, but did not necessarily appear less anxious. She stated the above concerns came to her from "well, I don't know what they are, but I just call them 'clues that are left behind for me'." Pt states that she continues to be overwhelmed and hopeless. She denies active SI, but states, "I don't want to hurt myself, but if someone were to just shoot me I would be happy. And don't write that down to say that I'm suicidal, cause it's different." This provider thanked the patient for honestly expressing her feelings, and we attempted to review ways in which her condition is improving. Pt admits that she is feeling better now than she was this morning. She also reports that she slept very well last night, which makes her happy as well. She is eager for the meeting with her daughter tomorrow, and otherwise is planning to continue attending groups today. Pt denies acute needs at this time, and was encouraged to reach out to staff with any other questions or uncertainties, so that we could assist with processing these thoughts before they become overwhelming. She was agreeable with this. Summary of Past History Medication Trials Physical Exam Psychiatric Orientation: alert, oriented x 3 and cooperative (but hesitant) Apperance: appropriately dressed (in zip-up hoodie and leggings), + disheveled (hair is somewhat unkempt) and appeared stated age Eye Contact: good eye contact Motor Behavior: steady gait and station and no abnormal motor movements Speech: normal rate/rhythm/volume of speech Affect: + depressed affect, + anxious affect and + tearful affect Mood: + depressed mood and + anxious mood Thought Process: goal directed thought process and + perseveration (anxiety related to uncertainties regarding various topics); + thought process not linear or logical Thought Content: + preoccupation (with level of uncertainty), + cognitive distortions, + hopelessness and + self deprecation Suicidal Thoughts: denies suicidal plan and denies suicidal intent; + reports suicidal thoughts Admits to passive SI - "I don't have a plan to hurt myself; but if someone would shoot me, I'd be happy." Homicidal Thoughts: denies homicidal thoughts Hallucinations: no auditory hallucinations and no visual hallucinations Cognition: attention grossly intact and language grossly intact Estimated Intelligence: consistent with education level Insight: + impaired insight Judgement: + fair judgement Vital Signs (Past 24 Hours) Last Vital Signs Temp 36.7 C 03/08/19 06:00 Pulse 76 03/08/19 06:00 Resp 18 03/08/19 06:00 BP 127/79 03/08/19 06:00 Results & Data Current Inpatient Medications Current Inpatient Medications: Current Inpatient Medications Acetaminophen (Tylenol) 650 mg PO Q4H PRN PRN Reason: Headache or Minor Fever Stop: 04/03/19 00:26 Last Admin: 03/06/19 20:10 Dose: 650 mg Documented by: Al Hydrox/Mg Hydrox/Simethicone (Maalox) 30 ml PO Q4H PRN PRN Reason: GI Upset Stop: 04/03/19 00:26 Benztropine Mesylate (Cogentin) 0.5 mg PO Q6 PRN PRN Reason: Muscle Spasm Stop: 04/03/19 12:21 Bismuth Subsalicylate (Kaopectate) 15 ml PO PRN PRN PRN Reason: Loose Stool Stop: 04/03/19 00:26 Bupropion HCl (Wellbutrin-Sr) 200 mg PO DAILY CASSIDY Stop: 04/03/19 09:59 Last Admin: 03/08/19 08:40 Dose: 200 mg Documented by: Buspirone HCl (Buspar) 10 mg PO BID CASSIDY Stop: 04/03/19 20:59 Last Admin: 03/08/19 08:40 Dose: 10 mg Documented by: Hydroxyzine HCl (Vistaril) 50 mg PO HSZ PRN PRN Reason: Insomnia Stop: 04/03/19 00:26 Last Admin: 03/06/19 02:33 Dose: 50 mg Documented by: Hydroxyzine HCl (Vistaril) 25 mg PO Q4H PRN PRN Reason: Anxiety Stop: 04/03/19 00:26 Lorazepam (Ativan) 1 mg PO TID PRN PRN Reason: Anxiety Stop: 04/03/19 09:46 Last Admin: 03/08/19 09:36 Dose: 1 mg Documented by: Magnesium Hydroxide (Milk Of Magnesia) 30 ml PO DAILY PRN PRN Reason: Constipation Stop: 04/03/19 00:26 Pantoprazole Sodium (Protonix) 40 mg PO DAILY CASSIDY Stop: 04/03/19 10:29 Last Admin: 03/08/19 08:40 Dose: 40 mg Documented by: Risperidone (Risperdal) 0.5 mg PO BID CASSIDY Stop: 04/06/19 11:44 Last Admin: 03/08/19 08:40 Dose: 0.5 mg Documented by: Sodium Chloride ([place] Nasal) 1 - 2 sprays NA PRN PRN PRN Reason: Nasal Dryness/Congestion Stop: 04/03/19 00:26 Mental Health & Subst Abuse Tx Psychiatrist Name of Psychiatrist: [facility] - Dr. Rodríguez/STELLA Powell Psychiatrist's Date of Appointment with Psychiatrist: 03/23/19 Time of Appointment with Psychiatrist: 2:00pm Psychiatric Appointment Comment: [phone], [place] [phone] (Appt. w/STELLA Powell) Therapist Name of Therapist: [facility] - [place] Therapist's Date of Therapist Appointment: 04/20/19 Time of Therapist Appointment: 1pm Therapy Appointment Comment: [phone], [place] [phone] (Appt. w/STELLA Powell) Post Discharge Appointments Primary Care Physician Name Of Family Doctor: [facility] - Dr. Multani Primary Care Provider Appointment Comment: [address] [place] [address] Contact Information Discharge Discharge Address: [facility] [address], [place] [address] CPT Code CPT Code 59362
[2019-03-09] MEDS: risperiDONE 0.5 MG TABLET PO SCH ×2 (08:38→20:40)
[2019-03-09] MEDS: BuPROPion SR 100 MG TABCR PO SCH (08:38)
[2019-03-09] MEDS: PANTOprazole 40 MG TAB PO SCH (08:38)
--- NOTE | 2019-03-09 11:58 | Psychiatric Progress Note ---
Date of Service March 09, 2019 Impression / Recommendations Impression 63 yo female with a history of schizoaffective disorder, bipolar type with prior suicide attempt 5 years ago presents with long history of paranoid delusions re: electronics, symptoms worsening to include SI in the context of presumed withdrawal from benzodiazepines. Pt agreeable to retrial of an antipsychotic medication to target long history of delusional beliefs. After explanation of risks, benefits, and potential side effects - patient is willing to trial risperidone with titration as necessary/tolerated. AIMS - 0. Fasting labs obtained on 03/05 were reviewed; all WNLs. Pt is scheduled for a family meeting with her daughter on 03/09. She remains in need of inpatient psychiatric treatment due to her continued paranoia, delusions, and risk of harm to self due to the level of distress worsening SI. (1) Schizoaffective disorder: 03/04 The patient was admitted to the [facility] ([facility] mental health unit) on q15 min checks (behavioral with suicide precautions) for safety. The patient will participate in group, recreational, and milieu therapies and will be offered additional individual and family sessions as clinically appropriate. she is resistant to titrating Abilify today and ideally need records re: past med trials. She did agree to resume Ativan as it does seem worsened significantly during withdrawal and we are working to obtain collateral. She is paranoid and won't sign ROIs at this time. Given past positive response to Wellbutrin, it will not be held at this time but in general can contribute to paranoia due to dopaminergic property. no clear evidence of serotonin syndrome so continue Buspar QTc is borderline, repeat EKG fasting metabolic panel in am. 03/05--refused repeat EKG this am. d/c Abilify as ?contribution to mild serotonin syndrome, refusing titration yet need to determine appropriate options given past side effects. Much more organized today with restart Ativan. 03/06 - Records received from [facility], no past med trials included. Called and spoke with staff and requested med history, specifically antipsychotics. - Encourage patient to be out of bed and going to groups during the day. Enco urage attention to ADLs/hygiene. - Family meeting wiht daughter scheduled for . 03/07 - Initiate risperidone 0.5mg BID, with titration as necessary/tolerated - Continue bupropion and buspirone at home doses - Family meeting with daughter - Pt has been attending more groups today, continue to encourage attendance 03/08 - Titrate risperidone to 1mg BID, starting this evening - Continue remainder of psychotropic medications - Family meeting with daughter tomorrow - Continue to encourage group attendance 03/09 - Continue current medication regimen, patient appearing mildly improved - Family meeting with daughter today; hoping to gather information regarding patient's baseline and daughter's sense of improvements thus far - Continue to assist with development of healthy and effective coping strategies Inventory Assets Strengths: supportive family, has been med compliant, maintains some reality focus Needs: medication adjustment, additional outpatient supports Risk Factors Assessment Male: No : Yes Do You Have Access To A Gun?: No Mental Health Diagnoses: Yes Substance Use Disorders: No Previous Attempt: Yes Family History of Suicide: No Previous Psychiatric Hospitalization: Yes Hopelessness: Yes Protective Factors Assessment Supportive Family: Yes Interval History Identifying Information MELANIE MARTINEZ is a 63-year-old F who currently lives alone outside [place], has a history of schizoaffective disorder s/p suicide attempt 5 years ago, and was admitted on 03/04/19 02:12 on a 201 voluntary commitment for psychosis and suicidal ideation, after writing a suicide note. Chief Complaint "I was feeling a little shaky this morning, but I took a shower and that was refreshing." Review of Systems Notes Constitutional: reports improvement in quality of sleep Cardiovascular: denied Respiratory: denied Gastrointestinal: denied Neurological: denied Psychiatric: denies symptoms other than stated above Total of at least 10 systems reviewed, pertinent positives as above and in HPI. Sleep Information Total Hours of Sleep: 6.25 Sleep Comments: pt appeared to be awake @0400 for about one hr and appeared to be asleep afterwards. pt on q-15 minute checks Meal Information Percent Meal Consumed - Breakfast: 50 Percent Meal Consumed - Lunch: 80 Percent Meal Consumed - Dinner: 85 Nutrition Comment: documented from meal record worksheet Medication Trials Subjective Subjective Patient was seen & assessed and interval progress reviewed with nursing and social work. Staff reports that the patient had a difficult morning yesterday, but was more interactive in the afternoon. Conversations in the evening were reality-based and more logical. Ways to improve patient's opportunities for social groups/gatherings was discussed as well. Pt is scheduled for a family meeting with her daughter this afternoon; her son visited last evening. Pt was seen today to assess progress since admission. Pt states that she was feeling "shaky this morning, but I took a shower and that was refreshing." Pt admits that she is feeling better today, as she is a little less worried. Pt feels that "the medication [risperidone] agrees with me. I'm not having any ill- effects, and I do think I'm a little calmer." She reports her sleep has improved, and her mood is "a little bit better." She admits "I don't feel bubbly by any means", and reports a perceived need for additional coping strategies. Pt states, "I need to realize that when I have a bad day it's not the end of the world. I think my family needs to realize that too." Pt engaged in insightful conversation with this provider about various coping skills she has already found beneficial and others she could develop further. Pt reports a history of "acting impulsively when I have a bad day." When asked for examples of these "impulsive" actions, the patient reports: "sometimes I've shredded things I shouldn't have, I bought a car which I don't remember, sometimes I just have a lot of fear - it can be paralyzing." Pt was able to list was in which she could handle stress or anxiety differently, and reported benefit from the conversation. We discussed topics she plans to present for her family meeting. Otherwise, she denies needs or concerns at this time. Summary of Past History Medication Trials Physical Exam Psychiatric Orientation: alert, oriented x 3 and cooperative (timid, but pleasant) Apperance: appropriately dressed (in sweater and leggings), appropriately groomed and appeared stated age Eye Contact: good eye contact Motor Behavior: steady gait and station and no abnormal motor movements Speech: normal rate/rhythm/volume of speech (somewhat timid, but speech is spontaneous ) Affect: + depressed affect, + anxious affect and mood congruent with affect Mood: + depressed mood ("Maybe a little bit better" and "I don't feel bubbly by any means") and + anxious mood ("a little shaky this morning" and "I feel calmer now") Thought Process: goal directed thought process, clear/coherent thought process and thought association intact Thought Content: + cognitive distortions, + hopelessness (unsure of what purpose she has in life) and + self deprecation Suicidal Thoughts: denies suicidal thoughts Denies SI, but admits "life is worth living", but reports preoccupation with finding worth in her own life, and how to share that with others Homicidal Thoughts: denies homicidal thoughts Hallucinations: no auditory hallucinations and no visual hallucinations Cognition: attention grossly intact and language grossly intact Insight: + limited insight (though improving over the past day) Judgement: + fair judgement Vital Signs (Past 24 Hours) Last Vital Signs Temp 36.8 C 03/09/19 06:00 Pulse 75 03/09/19 06:46 Resp 18 03/09/19 06:00 BP 139/88 03/09/19 06:46 Results & Data Current Inpatient Medications Current Inpatient Medications: Current Inpatient Medications Acetaminophen (Tylenol) 650 mg PO Q4H PRN PRN Reason: Headache or Minor Fever Stop: 04/03/19 00:26 Last Admin: 03/06/19 20:10 Dose: 650 mg Documented by: Al Hydrox/Mg Hydrox/Simethicone (Maalox) 30 ml PO Q4H PRN PRN Reason: GI Upset Stop: 04/03/19 00:26 Benztropine Mesylate (Cogentin) 0.5 mg PO Q6 PRN PRN Reason: Muscle Spasm Stop: 04/03/19 12:21 Bismuth Subsalicylate (Kaopectate) 15 ml PO PRN PRN PRN Reason: Loose Stool Stop: 04/03/19 00:26 Bupropion HCl (Wellbutrin-Sr) 200 mg PO DAILY [facility] Stop: 04/03/19 09:59 Last Admin: 03/09/19 08:38 Dose: 200 mg Documented by: Buspirone HCl (Buspar) 10 mg PO BID CASSIDY Stop: 04/03/19 20:59 Last Admin: 03/09/19 08:38 Dose: 10 mg Documented by: Hydroxyzine HCl (Vistaril) 50 mg PO HSZ PRN PRN Reason: Insomnia Stop: 04/03/19 00:26 Last Admin: 03/06/19 02:33 Dose: 50 mg Documented by: Hydroxyzine HCl (Vistaril) 25 mg PO Q4H PRN PRN Reason: Anxiety Stop: 04/03/19 00:26 Lorazepam (Ativan) 1 mg PO TID PRN PRN Reason: Anxiety Stop: 04/03/19 09:46 Last Admin: 03/08/19 09:36 Dose: 1 mg Documented by: Magnesium Hydroxide (Milk Of Magnesia) 30 ml PO DAILY PRN PRN Reason: Constipation Stop: 04/03/19 00:26 Pantoprazole Sodium (Protonix) 40 mg PO DAILY CASSIDY Stop: 04/03/19 10:29 Last Admin: 03/09/19 08:38 Dose: 40 mg Documented by: Risperidone (Risperdal) 1 mg PO BID CASSIDY Stop: 04/07/19 20:59 Last Admin: 03/09/19 08:38 Dose: 1 mg Documented by: Sodium Chloride ([place] Nasal) 1 - 2 sprays NA PRN PRN PRN Reason: Nasal Dryness/Congestion Stop: 04/03/19 00:26 Mental Health & Subst Abuse Tx Psychiatrist Name of Psychiatrist: [facility] - Dr. Rodríguez/STELLA Powell Psychiatrist's Date of Appointment with Psychiatrist: 03/23/19 Time of Appointment with Psychiatrist: 2:00pm Psychiatric Appointment Comment: [phone], [place] (Appt. w/STELLA Powell) Therapist Name of Therapist: [facility] [place] Therapist's Date of Therapist Appointment: 04/20/19 Time of Therapist Appointment: 1pm Therapy Appointment Comment: [address], [place] (Appt. w/STELLA Powell) Post Discharge Appointments Primary Care Physician Name Of Family Doctor: [place] - Dr. Multani Primary Care Provider Appointment Comment: [place] [address] Contact Information Discharge Discharge Address: [address], [place] [address] CPT Code CPT Code 34102
[2019-03-10] MEDS: BuPROPion SR 100 MG TABCR PO SCH (08:37)
[2019-03-10] MEDS: PANTOprazole 40 MG TAB PO SCH (08:37)
[2019-03-10] MEDS: risperiDONE 0.5 MG TABLET PO SCH ×2 (08:37→21:12)
[2019-03-10] MEDS: ACETAMINOPHEN 325 MG TAB PO PRN (08:50)
--- NOTE | 2019-03-10 09:42 | Psychiatric Progress Note ---
Date of Service March 10, 2019 Impression / Recommendations Impression 63 yo female with a history of schizoaffective disorder, bipolar type with prior suicide attempt 5 years ago presents with long history of paranoid delusions re: electronics, symptoms worsening to include SI in the context of presumed withdrawal from benzodiazepines. Pt agreeable to retrial of an antipsychotic medication to target long history of delusional beliefs. After explanation of risks, benefits, and potential side effects - patient is willing to trial risperidone with titration as necessary/tolerated. Fasting labs obtained on 03/05 were reviewed; all WNLs. Pt is scheduled for a family meeting with her daughter on 03/09. She remains in need of inpatient psychiatric treatment due to her risk of harm to self if discharge prior to demonstrating consistency of mood and reliably managing symptoms independently. (1) Schizoaffective disorder: 03/04 The patient was admitted to the [facility] ([facility] mental health unit) on q15 min checks (behavioral with suicide precautions) for safety. The patient will participate in group, recreational, and milieu therapies and will be offered additional individual and family sessions as clinically approp nicho. she is resistant to titrating Abilify today and ideally need records re: past med trials. She did agree to resume Ativan as it does seem worsened significantly during withdrawal and we are working to obtain collateral. She is paranoid and won't sign ROIs at this time. Given past positive response to Wellbutrin, it will not be held at this time but in general can contribute to paranoia due to dopaminergic property. no clear evidence of serotonin syndrome so continue Buspar QTc is borderline, repeat EKG fasting metabolic panel in am. 03/05--refused repeat EKG this am. d/c Abilify as ?contribution to mild serotonin syndrome, refusing titration yet need to determine appropriate options given past side effects. Much more organized today with restart Ativan. 03/06 - Records received from [facility], no past med trials included. Called and spoke with staff and requested med history, specifically antipsychotics. - Encourage patient to be out of bed and going to groups during the day. Encourage attention to ADLs/hygiene. - Family meeting wiht daughter scheduled for . 03/07 - Initiate risperidone 0.5mg BID, with titration as necessary/tolerated - Continue bupropion and buspirone at home doses - Family meeting with daughter - Pt has been attending more groups today, continue to encourage attendance 03/08 - Titrate risperidone to 1mg BID, starting this evening - Continue remainder of psychotropic medications - Family meeting with daughter tomorrow - Continue to encourage group attendance 03/09 - Continue current medication regimen, patient appearing mildly improved - Family meeting with daughter today; hoping to gather information regarding patient's baseline and daughter's sense of improvements thus far - Continue to assist with development of healthy and effective coping strategies 03/10 - Continue current medication regimen, condition continues to improve - Family meeting yesterday with daughter, felt to not be at baseline, but daughter feeling comfortable with discharge soon - Continue to encourage use of healthy coping strategies - Goal is for demonstrated consistency of mood prior to consideration for discharge Inventory Assets Strengths: supportive family, has been med compliant, maintains some reality focus Needs: medication adjustment, additional outpatient supports Risk Factors Assessment Male: No : Yes Do You Have Access To A Gun?: No Mental Health Diagnoses: Yes Substance Use Disorders: No Previous Attempt: Yes Family History of Suicide: No Previous Psychiatric Hospitalization: Yes Hopelessness: Yes Protective Factors Assessment Supportive Family: Yes Interval History Identifying Information MELANIE MARTINEZ is a 63-year-old F who currently lives alone outside [place], has a history of schizoaffective disorder s/p suicide attempt 5 years ago, and was admitted on 03/04/19 02:12 on a 201 voluntary commitment for psychosis and suicidal ideation, after writing a suicide note. Chief Complaint "I think the meeting went really well." Review of Systems Notes Constitutional: denied Cardiovascular: denied Respiratory: denied Gastrointestinal: denied Neurological: denied Psychiatric: denies symptoms other than stated above Total of at least 10 systems reviewed, pertinent positives as above and in HPI. Sleep Information Total Hours of Sleep: 7.5 Sleep Comments: pt on q-15 minute checks Meal Information Percent Meal Consumed - Breakfast: 50 Percent Meal Consumed - Lunch: 80 Percent Meal Consumed - Dinner: 90 Nutrition Comment: documented from meal record worksheet Medication Trials Subjective Subjective Patient was seen & assessed and interval progress reviewed with treatment team. Staff report the patient has appeared to be doing well, and attending groups. She participated in a family meeting with her daughter yesterday. Per daughter, patient is no 100%, but daughter would feel comfortable with her returning home in her current condition. Pt has not required prn lorazepam recently. Pt was seen today to assess progress since admission. Pt states she felt the meeting with her daughter went "really well. We were able to say some things that maybe we hadn't said to each other before." When asked for an example, patient states "like I could tell my daughter that just because I'm having a bad day, it doesn't mean I'm over the edge." Pt states that they were able to discuss "warning signs" and patient feels she has gathered useful coping skills during her admission. Pt states, "I really think I found a treasure in that workbook. And yesterday there was a stress management group that was really helpful." Pt states she has been reading the behavioral health work book while in her room. She shares with this provider that she struggles with socializing, and "I need time by myself to re-energize. I feel like people think I'm isolating when I'm in my room between groups, but I'm really just spending time reading this book and thinking." Pt does admit she was "disappointed when they brought the paper [treatment plan] around this morning", due to estimated length of stay of 2-3 days. We discussed that staff is noticing improvements, but that we want to ensure stability of mood and anxiety prior to considering discharge home, where she will be expected to manage her symptoms independently. She continues to deny issues with medications and SI. Pt denies other needs or concerns today. Summary of Past History Medication Trials Physical Exam Psychiatric Orientation: alert, oriented x 3 and cooperative (remains mildly hesitant, but very pleasant) Apperance: appropriately dressed, appropriately groomed and appeared stated age Eye Contact: good eye contact Motor Behavior: steady gait and station and no abnormal motor movements Speech: normal rate/rhythm/volume of speech Affect: + anxious affect, + blunted affect and mood congruent with affect Mood: + anxious mood Thought Process: goal directed thought process, clear/coherent thought process and thought association intact Thought Content: reality based without delusions (no verbalized delusional beliefs or paranoia); no hopelessness and no self deprecation Suicidal Thoughts: denies suicidal thoughts, denies suicidal plan and denies suicidal intent Homicidal Thoughts: denies homicidal thoughts Hallucinations: no auditory hallucinations and no visual hallucinations Cognition: attention grossly intact and language grossly intact Insight: + fair insight Judgement: + fair judgement Vital Signs (Past 24 Hours) Last Vital Signs Temp 36.6 C 03/10/19 06:45 Pulse 73 03/10/19 06:46 Resp 18 03/10/19 06:45 BP 139/86 03/10/19 06:46 Results & Data Current Inpatient Medications Current Inpatient Medications: Current Inpatient Medications Acetaminophen (Tylenol) 650 mg PO Q4H PRN PRN Reason: Headache or Minor Fever Stop: 04/03/19 00:26 Last Admin: 03/10/19 08:50 Dose: 650 mg Documented by: Al Hydrox/Mg Hydrox/Simethicone (Maalox) 30 ml PO Q4H PRN PRN Reason: GI Upset Stop: 04/03/19 00:26 Benztropine Mesylate (Cogentin) 0.5 mg PO Q6 PRN PRN Reason: Muscle Spasm Stop: 04/03/19 12:21 Bismuth Subsalicylate (Kaopectate) 15 ml PO PRN PRN PRN Reason: Loose Stool Stop: 04/03/19 00:26 Bupropion HCl (Wellbutrin-Sr) 200 mg PO DAILY [facility] Stop: 04/03/19 09:59 Last Admin: 03/10/19 08:37 Dose: 200 mg Documented by: Buspirone HCl (Buspar) 10 mg PO BID [facility] Stop: 04/03/19 20:59 Last Admin: 03/10/19 08:37 Dose: 10 mg Documented by: Hydroxyzine HCl (Vistaril) 50 mg PO HSZ PRN PRN Reason: Insomnia Stop: 04/03/19 00:26 Last Admin: 03/06/19 02:33 Dose: 50 mg Documented by: Hydroxyzine HCl (Vistaril) 25 mg PO Q4H PRN PRN Reason: Anxiety Stop: 04/03/19 00:26 Lorazepam (Ativan) 1 mg PO TID PRN PRN Reason: Anxiety Stop: 04/03/19 09:46 Last Admin: 03/08/19 09:36 Dose: 1 mg Documented by: Magnesium Hydroxide (Milk Of Magnesia) 30 ml PO DAILY PRN PRN Reason: Constipation Stop: 04/03/19 00:26 Pantoprazole Sodium (Protonix) 40 mg PO DAILY [facility] Stop: 04/03/19 10:29 Last Admin: 03/10/19 08:37 Dose: 40 mg Documented by: Risperidone (Risperdal) 1 mg PO BID [facility] Stop: 04/07/19 20:59 Last Admin: 03/10/19 08:37 Dose: 1 mg Documented by: Sodium Chloride ([place] Nasal) 1 - 2 sprays NA PRN PRN PRN Reason: Nasal Dryness/Congestion Stop: 04/03/19 00:26 Mental Health & Subst Abuse Tx Psychiatrist Name of Psychiatrist: [facility] - Dr. Rodríguez/KYLER Powell Psychiatrist's Date of Appointment with Psychiatrist: 03/23/19 Time of Appointment with Psychiatrist: 2:00pm Psychiatric Appointment Comment: [phone], [place] [phone] (Appt. w/KYLER Powell) Therapist Name of Therapist: [facility] Fernando Hull Therapist's Date of Therapist Appointment: 04/20/19 Time of Therapist Appointment: 1pm Therapy Appointment Comment: [phone], [place] [phone] (Appt. w/KYLER Powell) Business Account Leader Name of Business Account Leader: Adelaide TERRAZAS Phone Number for Business Account Leader: [phone] Time of Appointment with Business Account Leader: Call if you decide to try a telephonic nurse case manager. Case Management Appointment Comment: [address], [address], [address], [place]. [address] Post Discharge Appointments Primary Care Physician Name Of Family Doctor: [facility] - Dr. Multani Primary Care Provider Appointment Comment: [address] [place] [address] Contact Information Discharge Discharge Address: [address], [place] [address] CPT Code CPT Code 56635
[2019-03-11] MEDS: PANTOprazole 40 MG TAB PO SCH (08:47)
[2019-03-11] MEDS: BuPROPion SR 100 MG TABCR PO SCH (08:47)
[2019-03-11] MEDS: risperiDONE 0.5 MG TABLET PO SCH ×2 (08:47→21:00)
[2019-03-11] MEDS: FERROUS SULFATE 325 MG TAB PO SCH (08:47)
--- NOTE | 2019-03-11 09:52 | Psychiatric Progress Note ---
Date of Service March 11, 2019 Impression / Recommendations Impression 63 yo female with a history of schizoaffective disorder, bipolar type with prior suicide attempt 5 years ago presents with long history of paranoid delusions re: electronics, symptoms worsening to include SI in the context of presumed withdrawal from benzodiazepines. Pt agreeable to retrial of an antipsychotic medication to target long history of delusional beliefs. After explanation of risks, benefits, and potential side effects - patient is willing to trial risperidone with titration as necessary/tolerated. Fasting labs obtained on 03/05 were reviewed; all WNLs. Pt is scheduled for a family meeting with her daughter on 03/09. She remains in need of inpatient psychiatric treatment due to her risk of harm to self if discharge prior to demonstrating consistency of mood and reliably managing symptoms independently. (1) Schizoaffective disorder: 03/04 The patient was admitted to the [facility] ([facility] mental health unit) on q15 min checks (behavioral with suicide precautions) for safety. The patient will participate in group, recreational, and milieu therapies and will be offered additional individual and family sessions as clinically approp nicho. she is resistant to titrating Abilify today and ideally need records re: past med trials. She did agree to resume Ativan as it does seem worsened significantly during withdrawal and we are working to obtain collateral. She is paranoid and won't sign ROIs at this time. Given past positive response to Wellbutrin, it will not be held at this time but in general can contribute to paranoia due to dopaminergic property. no clear evidence of serotonin syndrome so continue Buspar QTc is borderline, repeat EKG fasting metabolic panel in am. 03/05--refused repeat EKG this am. d/c Abilify as ?contribution to mild serotonin syndrome, refusing titration yet need to determine appropriate options given past side effects. Much more organized today with restart Ativan. 03/06 - Records received from [facility], no past med trials included. Called and spoke with staff and requested med history, specifically antipsychotics. - Encourage patient to be out of bed and going to groups during the day. Encourage attention to ADLs/hygiene. - Family meeting wiht daughter scheduled for . 03/07 - Initiate risperidone 0.5mg BID, with titration as necessary/tolerated - Continue bupropion and buspirone at home doses - Family meeting with daughter - Pt has been attending more groups today, continue to encourage attendance 03/08 - Titrate risperidone to 1mg BID, starting this evening - Continue remainder of psychotropic medications - Family meeting with daughter tomorrow - Continue to encourage group attendance 03/09 - Continue current medication regimen, patient appearing mildly improved - Family meeting with daughter today; hoping to gather information regarding patient's baseline and daughter's sense of improvements thus far - Continue to assist with development of healthy and effective coping strategies 03/10 - Continue current medication regimen, condition continues to improve - Family meeting yesterday with daughter, felt to not be at baseline, but daughter feeling comfortable with discharge soon - Continue to encourage use of healthy coping strategies - Goal is for demonstrated consistency of mood prior to consideration for discharge 03/11 - Continue current medication regimen, favor use of hydroxyzine over lorazepam for acute anxiety at this point in her stay - Family meeting yesterday, daughter admitted patient not baseline but felt comfortable with discharge - explore daughter's availability for transportation this weekend - Continue to engage in group programming and assist with development of healthy coping strategies Inventory Assets Strengths: supportive family, has been med compliant, maintains some reality focus Needs: medication adjustment, additional outpatient supports Risk Factors Assessment Male: No : Yes Do You Have Access To A Gun?: No Mental Health Diagnoses: Yes Substance Use Disorders: No Previous Attempt: Yes Family History of Suicide: No Previous Psychiatric Hospitalization: Yes Hopelessness: Yes Protective Factors Assessment Supportive Family: Yes Interval History Identifying Information MELANIE MARTINEZ is a 63-year-old F who currently lives alone outside [place], has a history of schizoaffective disorder s/p suicide attempt 5 years ago, and was admitted on 03/04/19 02:12 on a 201 voluntary commitment for psychosis and suicidal ideation, after writing a suicide note. Chief Complaint "Ok. I'm trying to think about what happened yesterday. I called my daughter, oh, and had a good conversation with the therapist." Review of Systems Notes Constitutional: reports consistent improvement in sleep, less fatigued this morning Cardiovascular: denied Respiratory: denied Gastrointestinal: denied Neurological: denied Psychiatric: denies symptoms other than stated above Total of at least 10 systems reviewed, pertinent positives as above and in HPI. Sleep Information Total Hours of Sleep: 7 Sleep Comments: pt on q-15 minute checks Meal Information Percent Meal Consumed - Breakfast: 80 Percent Meal Consumed - Lunch: 90 Percent Meal Consumed - Dinner: 100 Nutrition Comment: documented from meal record worksheet Medication Trials Subjective Subjective Patient was seen & assessed and interval progress reviewed with nursing and social work. Staff report the patient continues to demonstrate consistent improvements. She rated her mood a "4.5-5/10" and "ok" last evening. Pt was seen today to assess progress since admission. Pt states she is "ok", and recalls various high points of her day for this provider. Pt states she called her daughter yesterday, "and I told her not to come visit. She needs a break, but we did talk on the phone last night." Pt states that she had a conversation with our counselor last evening about personality traits that lead her to label herself as an introvert. Pt agreed with this strongly, but stated, "that's not a bad thing. I like to think a lot, I pray a lot too." She states they also discussed the level of paranoia she demonstrated on admission, and her perceived improvements. Pt states, "I think a touch of paranoia will always be there, I'm just a cautious person." We discussed warning signs in order to tell when "a touch of paranoia" and expanded into cognitive distortions that lead to extreme anxiety and delusional thoughts. Pt was able to recognize there is a difference and discussed coping strategies that would be helpful for her to "not be so impulsive in those moments. I need to find something that makes me think about things first." Pt states, "I think I've really done well the past couple days." We discussed that a discharge tomorrow seemed appropriate if her continued to have a decent day today, patient was willing to explore her daughter's schedule to determine transportation availability. She brightens significantly when we discuss the idea of discharge this weekend. She continues to deny SI or other needs at this time. Summary of Past History Medication Trials Physical Exam Psychiatric Orientation: alert, oriented x 3 and cooperative (timid, but very pleasant) Apperance: appropriately dressed (casually in sweatshirt and sweatpants), appropriately groomed and appeared stated age Eye Contact: good eye contact Motor Behavior: steady gait and station and no abnormal motor movements Speech: normal rate/rhythm/volume of speech Affect: + anxious affect (mildly, but appears improved) and + constricted affect (appears timid and reserved, but brightening of affect at appropriate times) Mood: + anxious mood ("still a little nervous, but better. I haven't needed any Ativan.") Thought Process: goal directed thought process, clear/coherent thought process and thought association intact Thought Content: reality based without delusions (realistic expectations verbalized about discharge and continued treatment); no hopelessness and no worthlessness Suicidal Thoughts: denies suicidal thoughts and denies suicidal intent Homicidal Thoughts: denies homicidal thoughts Hallucinations: no auditory hallucinations and no visual hallucinations Cognition: attention grossly intact and language grossly intact Insight: + fair insight Judgement: + fair judgement Vital Signs (Past 24 Hours) Last Vital Signs Temp 36.6 C 03/11/19 06:48 Pulse 72 03/11/19 06:48 Resp 18 03/11/19 06:48 BP 134/74 03/11/19 06:48 Results & Data Current Inpatient Medications Current Inpatient Medications: Current Inpatient Medications Acetaminophen (Tylenol) 650 mg PO Q4H PRN PRN Reason: Headache or Minor Fever Stop: 04/03/19 00:26 Last Admin: 03/10/19 08:50 Dose: 650 mg Documented by: Al Hydrox/Mg Hydrox/Simethicone (Maalox) 30 ml PO Q4H PRN PRN Reason: GI Upset Stop: 04/03/19 00:26 Benztropine Mesylate (Cogentin) 0.5 mg PO Q6 PRN PRN Reason: Muscle Spasm Stop: 04/03/19 12:21 Bismuth Subsalicylate (Kaopectate) 15 ml PO PRN PRN PRN Reason: Loose Stool Stop: 04/03/19 00:26 Bupropion HCl (Wellbutrin-Sr) 200 mg PO DAILY [facility] Stop: 04/03/19 09:59 Last Admin: 03/11/19 08:47 Dose: 200 mg Documented by: Buspirone HCl (Buspar) 10 mg PO BID [facility] Stop: 04/03/19 20:59 Last Admin: 03/11/19 08:47 Dose: 10 mg Documented by: Ferrous Sulfate (Feosol) 325 mg PO QAM [facility] Stop: 04/10/19 08:59 Last Admin: 03/11/19 08:47 Dose: 325 mg Documented by: Hydroxyzine HCl (Vistaril) 50 mg PO HSZ PRN PRN Reason: Insomnia Stop: 04/03/19 00:26 Last Admin: 03/06/19 02:33 Dose: 50 mg Documented by: Hydroxyzine HCl (Vistaril) 25 mg PO Q4H PRN PRN Reason: Anxiety Stop: 04/03/19 00:26 Lorazepam (Ativan) 1 mg PO TID PRN PRN Reason: Anxiety Stop: 04/03/19 09:46 Last Admin: 03/08/19 09:36 Dose: 1 mg Documented by: Magnesium Hydroxide (Milk Of Magnesia) 30 ml PO DAILY PRN PRN Reason: Constipation Stop: 04/03/19 00:26 Pantoprazole Sodium (Protonix) 40 mg PO DAILY [facility] Stop: 04/03/19 10:29 Last Admin: 03/11/19 08:47 Dose: 40 mg Documented by: Risperidone (Risperdal) 1 mg PO BID [facility] Stop: 04/07/19 20:59 Last Admin: 03/11/19 08:47 Dose: 1 mg Documented by: Sodium Chloride ([place] Nasal) 1 - 2 sprays NA PRN PRN PRN Reason: Nasal Dryness/Congestion Stop: 04/03/19 00:26 Mental Health & Subst Abuse Tx Psychiatrist Name of Psychiatrist: [facility] - Dr. Rodríguez/KYLER Powell Psychiatrist's Date of Appointment with Psychiatrist: 03/23/19 Time of Appointment with Psychiatrist: 2:00pm Psychiatric Appointment Comment: [address], [place] [phone] (Appt. w/KYLER Powell) Therapist Name of Therapist: [facility] Fernando Hull Therapist's Date of Therapist Appointment: 04/20/19 Time of Therapist Appointment: 1pm Therapy Appointment Comment: [address] [address] (Appt. w/KYLER Powell) Online Producer Name of Online Producer: Adelaide TERRAZAS Phone Number for Online Producer: [phone] Time of Appointment with Online Producer: Call if you decide to try a case loader operator. Case Management Appointment Comment: [facility], [address], [address], [place]. [address] Post Discharge Appointments Primary Care Physician Name Of Family Doctor: [facility] - Dr. Multani Primary Care Time of Appointment with PCP: Follow up as needed. Provider Appointment Comment: [address], [place] [address] Contact Information Discharge Discharge Address: [address], [place] [address] Contact Information Comment: Can also call Erika penny ([phone]) CPT Code CPT Code 46364
[2019-03-12] MEDS: FERROUS SULFATE 325 MG TAB PO SCH (09:40)
[2019-03-12] MEDS: PANTOprazole 40 MG TAB PO SCH (09:40)
[2019-03-12] MEDS: BuPROPion SR 100 MG TABCR PO SCH (09:40)
[2019-03-12] MEDS: risperiDONE 0.5 MG TABLET PO SCH (09:40)
--- NOTE | 2019-03-12 09:42 | Discharge Summary ---
Date of Service March 12, 2019 History of Present Illness Patient accepted on transfer from [facility] ED where presented after calling crisis at insistence of daughter. She has had persistent paranoia about technology that predates her prior suicide attempt, primarily about things be moved or not being able to touch certain things as they may be booby trapped. 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 In the past few weeks she has worsened and although she had difficulty relating past history, states psych team at [facility] started her on low dose Abilify. She admits to breaking a laptop and cancelling her cable and internet. She states that she was taking Ativan 1 mg TID as prescribed but ran out a week ago. PDMP confirms 90 pills given by [facility] on 01/31/19. Over the course of the past week she has been less able to function and experiencing periods of confusion. She reports "losing it" over her car and doesn't remember going to the dealership to buy a new one. She does not remember taking out the loan and is remorseful as "I don't need it, I don't even want to drive". It is not clear how much she is sleeping but predominant mood has been depressed. She expressed SI and was guarded about her plan. She also voiced delusions about her 's phone ringing ( 2 years ago) and hearing chattering. She "couldn't stand it" when the [employer] light came on her in car and wished she could be shot. Physical Exam Psychiatric Orientation: alert, oriented x 3 and cooperative (and pleasant) Apperance: appropriately dressed (casually and comfortably in sweatshirt and sweatpants), appropriately groomed and appeared stated age Eye Contact: good eye contact Motor Behavior: steady gait and station and no abnormal motor movements Speech: normal rate/rhythm/volume of speech (timid speech, brief responses to questions) Affect: + anxious affect Mood: + anxious mood ("I'm nervious" and "I'm getting better") Thought Process: goal directed thought process, clear/coherent thought process and + perseveration Thought Content: + preoccupation (long-standing hesitation about signing paperwork); no delusions and no hopelessness Suicidal Thoughts: denies suicidal thoughts Homicidal Thoughts: denies homicidal thoughts Hallucinations: no auditory hallucinations and no visual hallucinations Cognition: language grossly intact; + attention not intact Insight: + fair insight Judgement: + fair judgement Vital Signs (Past 24 Hours) Last Vital Signs Temp 36.6 C 03/12/19 06:56 Pulse 69 03/12/19 06:57 Resp 18 03/12/19 06:56 BP 137/82 03/12/19 06:57 Principal Diagnosis - Schizoaffective disorder Psychiatric Data 63-year-old female admitted for inpatient psychiatric admission on 03/04/19 due to reports of worsening paranoia leading to suicidality. Pt has a history of sc hizoaffective disorder, bipolar type with prior suicide attempt 5 years ago. Pt's presented with long history of paranoid delusions related to electronics and technology. It was also questioned if her difficulty was, some part, related to withdrawal from benzodiazepines. Pt had been instructed to retrial low-dose aripiprazole by her outpatient psychiatric prescriber. On admission, patient is not overly interested in continuing the medication due to cost. She was agreeable to allowing us to request outpatient records to review prior medication history. Pt was agreeable to a re-trial of risperidone to target her delusional/paranoid thought process. Pt reported that she tolerated the addition of the medication, which was titrated to a dose of 1mg BID. Pt admitted to improvement in anxiety, to the point that she did not require prn lorazepam the last two days of her admission. Fasting labs were obtained on 03/05; all WNLs. Pt remained on home dosing of bupropion 200mg daily and bu spirone 10mg BID. Pt tolerated prn use of hydroxyzine, and was agreeable to continuing this prn in place of lorazepam for anxiety after discharge. Pt attended and participated appropriately in group and recreational therapy. She had a family meeting with her daughter on 03/09, which went well. Patient's daughter reported feeling comfortable with her mother returning home at that time. Later in her hospitalization, patient continued to deny SI, and was future oriented in conversation. She reported improvement in her mood and anxiety, and felt she was safe to return home to independent living with the support of her daughter. Based on review of patient's case and their current presentation, risk of harm to self or others is no longer perceived to be acute. Management of symptoms on an outpatient basis seems the most appropriate and least restrictive setting. Pt seems appropriate for discharge with recommendation for consistent follow-up with outpatient psychiatric prescriber and therapist. Pt verbalized understanding of discharge plan reviewed and is agreeable with plan to be discharged home today. Day of Discharge Assessment Patient's case was reviewed an discussed with nursing and social work. Staff report the patient has continued to demonstrate improvement in her mood over the course of her stay. She did demonstrate some increased anxiety this morning when asked to review and sign ROIs, but has reported this to be a long-standing concern. This provider attempted to explain the purpose of the releases to the patient, who admitted to feeling most comfortable if the releases were reviewed with her daughter present. Last evening she rated her mood a 6/10 and "good", reporting feeling ready to go home today. Pt was seen today to assess readiness for discharge. Pt states she is doing well today, and remains interested in going home. She states that her mood and anxiety continue to be "getting better." She continues to deny the need to use lorazepam for anxiety over the past 2 days. She reports ongoing hypervigilance related to signing paperwork, but admits this has been long-standing. Although she verbalizes some specific concerns, her hesitancy with signing documentation seems to stem more from confusion than from specific paranoia. With regard to decision to return home, the patient reports feeling ready and comfortable. Pt denies ongoing SI and admits to increased hopefulness. Pt is future oriented in conversation and reports desire for discharge. He daughter has arrived on the unit and remains agreeable with the idea of being discharged home today. ROS: Constitutional: denied Cardiovascular: denied Respiratory: denied Gastrointestinal: denied Neurological: denied Psychiatric: denies symptoms other than stated above Total of at least 10 systems reviewed, pertinent positives as above and in HPI. Transition of Care Transition Of Care Record: was reviewed with the patient Advance Directives Advance Directives Information Provided: Yes Advance Directives: Yes Mental Health Advance Directive: No Advance Directives on File: No Living Will: Yes Power of Mold Chipper: Yes Power of Mold Chipper Name: Erika Ga (Daughter) Advance Directives Reason:: Declines as Mental Health Visit. Risk Factors Assessment Presenting risk factors reviewed on discharge. Precipitating stressors mitigated by: admission for inpatient psychiatric observation and treatment, appropriate adjustments to medications to target symptoms, attendance of therapeutic treatment groups, development of healthy and effective coping s trategies, involvement of outpatient supports, completion of a safety plan, treatment of medical conditions and education on diagnoses. Pt has demonstrated improvement in condition with regard to improvement in level of paranoia, improvement in mood, resolution of SI, and involvement of daughter in discharge planning. At this time, patient is requesting discharge and is no longer considered to be at acute risk of harm to herself or others. Pt will be discharged with recommendation for ongoing outpatient psychiatric treatment. Male: No : Yes Do You Have Access To A Gun?: No Mental Health Diagnoses: Yes Substance Use Disorders: No Previous Attempt: Yes Family History of Suicide: No Previous Psychiatric Hospitalization: Yes Hopelessness: Yes Protective Factors Assessment Supportive Family: Yes Tobacco Cessation at Discharge Tobacco Cessation Medication Prescribed at Discharge: Not Applicable/Non-Smoker Total Time Total Time Spent: Greater Than 30 Minutes Total Time Includes: Examination of the patient, Discharge Planning, Medication Reconciliation and Communication with other providers Discharge Data Lab Results 03/05/19 08:06 Fasting Glucose 91 Triglycerides 112 Cholesterol 167 LDL Cholesterol, Calc 91 VLDL Cholesterol, Calc 22 HDL Cholesterol 54 Cholesterol/HDL Ratio 3 Hospital Course (1) Schizoaffective disorder: 03/04 The patient was admitted to the [facility] on q15 min checks (behavioral with suicide precautions) for safety. The patient will participate in group, recreational, and milieu therapies and will be offered additional individual and family sessions as clinically appropriate. she is resistant to titrating Abilify today and ideally need records re: past med trials. She did agree to resume Ativan as it does seem worsened significan tly during withdrawal and we are working to obtain collateral. She is paranoid and won't sign ROIs at this time. Given past positive response to Wellbutrin, it will not be held at this time but in general can contribute to paranoia due to dopaminergic property. no clear evidence of serotonin syndrome so continue Buspar QTc is borderline, repeat EKG fasting metabolic panel in am. 03/05--refused repeat EKG this am. d/c Abilify as ?contribution to mild serotonin syndrome, refusing titration yet need to determine appropriate options given past side effects. Much more organized today with restart Ativan. 03/06 - Records received from [facility], no past med trials included. Called and spoke with staff and requested med history, specifically antipsychotics. - Encourage patient to be out of bed and going to groups during the day. Encourage attention to ADLs/hygiene. - Family meeting wiht daughter scheduled for . 03/07 - Initiate risperidone 0.5mg BID, with titration as necessary/tolerated - Continue bupropion and buspirone at home doses - Family meeting with daughter - Pt has been attending more groups today, continue to encourage attendance 03/08 - Titrate risperidone to 1mg BID, starting this evening - Continue remainder of psychotropic medications - Family meeting with daughter tomorrow - Continue to encourage group attendance 03/09 - Continue current medication regimen, patient appearing mildly improved - Family meeting with daughter today; hoping to gather information regarding patient's baseline and daughter's sense of improvements thus far - Continue to assist with development of healthy and effective coping strategies 03/10 - Continue current medication regimen, condition continues to improve - Family meeting yesterday with daughter, felt to not be at baseline, but daughter feeling comfortable with discharge soon - Continue to encourage use of healthy coping strategies - Goal is for demonstrated consistency of mood prior to consideration for discharge 03/11 - Continue current medication regimen, favor use of hydroxyzine over lorazepam for acute anxiety at this point in her stay - Family meeting yesterday, daughter admitted patient not baseline but felt comfortable with discharge - explore daughter's availability for transportation this weekend - Continue to engage in group programming and assist with development of healthy coping strategies Mental Health & Subst Abuse Tx Psychiatrist Name of Psychiatrist: [facility] - Dr. Rodríguez/[place] Psychiatrist's Date of Appointment with Psychiatrist: 03/23/19 Time of Appointment with Psychiatrist: 2:00pm Psychiatric Appointment Comment: [phone], [place] [phone] (Appt. w/KYLER Powell) Therapist Name of Therapist: [facility] Therapist's Date of Therapist Appointment: 04/20/19 Time of Therapist Appointment: 1pm Therapy Appointment Comment: [phone], [place] [phone] (Appt. w/KYLER Powell) Teamsite Developer Name of Teamsite Developer: Adelaide TERRAZASerson Phone Number for Teamsite Developer: [phone] Time of Appointment with Teamsite Developer: Call if you decide to try a case briefer. Case Management Appointment Comment: [address], [address], [address], [place]. [address] Post Discharge Appointments Primary Care Physician Name Of Family Doctor: Giov[facility] Dupont - Dr. [facility] Time of Appointment with PCP: Follow up as needed. Provider Appointment Comment: [address], [place] [id number] Smoking Cessation Counseling Tobacco Cessation Medication Prescribed at Discharge: Not Applicable/Non-Smoker Contact Information Discharge Discharge Address: [address], [place] [address] Contact Information Comment: Can also call Erika penny ([phone]) Discharge Plan Discharge Items Patient Disposition: Home - Self-Care Reason For Visit: SCHIZOAFFECTIVE DISORDER Discharge Diagnosis: Schizoaffective disorder Condition on Discharge: Fair Activity: Resume your previous activity Non-emergency contact: Primary Care Provider, Psychiatrist and Therapist Call non-emergency contact if: you have any medication questions and your symptoms worsen Follow-up/Referrals: Hoda Gomez M.D. [Primary Care Provider] - Diet: Regular Addtl Attending Provider Instructions: SPECIAL CARE INSTRUCTIONS: 1. Follow through with your scheduled aftercare appointments. If unable to keep an appointment, please call to reschedule. 2. Take your medication only as prescribed. Medication should not be changed or stopped without the approval of your doctor. In the event of worsening symptoms or concerns about side effects, contact your doctor immediately. 3. Utilize new healthy coping skills, anger management skills, and stress management skills learned during your hospitalization. Journal feelings and process them with a support person. Identify stressors or situations that may result in relapse, deterioration or inappropriate behaviors and develop a plan to deal with those issues. 4. If your coping skills are ineffective and you are in crisis, contact your outpatient providers for direction. If unable to reach your providers, please call the CAN HELP LINE AT or go to the closest Emergency Room. 5. Avoid alcohol and un-prescribed drugs. 6. You have been provided with the Mental Health Advance Directives Pamphlet for your review. AFTERCARE APPOINTMENTS: * Please call your insurance company prior to your scheduled appointment to confirm your aftercare providers are covered. Take your insurance information to your lowell ointments. WHO TO CALL AND WHEN: Medical Emergencies: For questions or emergencies related to your hospital stay, please contact the Inpatient Behavioral Health Unit at [phone]. A emt is on-call 21/12 for the Behavioral Health Unit for emergencies At any time you feel your situation is an emergency, you may also call 911 immediately. Your Doctors Instructions noted above were prepared by provider Maritza Neal PA-C. Pending Studies at Discharge: No Stand-Alone Forms: [facility] Medications and DC Order Prescriptions: New hydroxyzine HCl 25 mg Tablet 25 mg PO Q4H PRN (Reason: anxiety/insomnia) 30 Days Qty: 30 RF: 0 ferrous sulfate 325 mg (65 mg iron) Tablet,Delayed Release (Dr/Ec) 325 mg PO QAM 30 Days Qty: 30 RF: 0 risperidone 1 mg tablet 1 mg PO BID 30 Days Qty: 60 RF: 0 Continued bupropion HCl [Wellbutrin SR] 200 mg Tablet Sustained-Release 12 Hr 200 mg PO DAILY RF: 0 buspirone 10 mg Tablet 10 mg PO BID RF: 0 omeprazole 20 mg Capsule,Delayed Release(Dr/Ec) 20 mg PO DAILY RF: 0 Discontinued aripiprazole [Abilify] 2 mg Tablet 2 mg PO DAILY RF: 0 lorazepam [Ativan] 1 mg Tablet 1 mg PO TID PRN (Reason: Anxiety) RF: 0 Discharge Orders: Discharge Order (Routine); Ordered 03/12/19 Ordered By: Maritza Neal Admission Data Admit Date/Time: 03/04/19 02:12 Attending Provider: Giuliana Horta Admit Provider: Marina Contreras Primary Care Provider: Hoda Gomez Other Interventions: Discharge Summary Assessment (RN) Last Done: 03/12/19 12:10 PSY Interdisciplinary Discharge Planning Last Done: 03/12/19 12:06 DC Date/Time DO NOT enter until pt leaves facility: 03/12/19 13:00 Coding Level of Care Code 97802 D/C day mgmt > 30 min Diagnoses Schizoaffective disorder F25.9
== END 2019-03-12 13:00 | disposition home or self-care (01) | DRG 885 ==
LOC: 3S 02:12 → SUATTDRO 02:12
DX: F25.9 Schizoaffective disorder, unspecified